=== PATIENT | male | born 1975 | race Caucasian/White ===

== ENCOUNTER 2018-03-19 04:35 | Emergency (ER) | payer MEDICARE, OTHER ==
[~2018-03-19] VITALS: Ht 177.8 cm; Wt 68.0 kg
[2018-03-19] VITALS (8 sets, daily range): BP systolic 110–132; BP diastolic 67–99
[2018-03-19 05:34] LABS: BASOPHILS % (AUTO) 1.4 % (0.0-2.0); EOSINOPHILS % (AUTO) 2.4 % (0.0-3.0); HEMOGLOBIN 15.2 G/DL (14.2-18.0); LYMPHOCYTES % (AUTO) 31.4 % (20.0-45.0); MEAN CORPUSCULAR VOLUME 87 FL (80-99); MONOCYTES % (AUTO) 12.8 % (1.0-10.0); PLATELET COUNT 251 K/UL (150-450); RED BLOOD COUNT 5.16 M/UL (4.70-6.10); RED CELL DISTRIBUTION WIDTH 11.7 % (11.6-14.8)
[2018-03-19 05:43] LABS: ANION GAP 13 mmol/L (5-15); BLOOD UREA NITROGEN 25 mg/dL (7-18); CARBON DIOXIDE 24 MMOL/L (21-32); CHLORIDE 105 MMOL/L (98-107); CREATININE 1.3 MG/DL (0.55-1.30); POTASSIUM 3.5 MMOL/L (3.5-5.1); SODIUM 142 MMOL/L (136-145)
[2018-03-19 05:47] LABS: ALANINE AMINOTRANSFERASE 140 U/L (12-78); ALBUMIN 4.2 G/DL (3.4-5.0); ALKALINE PHOSPHATASE 86 U/L (46-116); ASPARTATE AMINO TRANSFERASE 192 U/L (15-37); BILIRUBIN,TOTAL 0.7 MG/DL (0.2-1.0)
--- NOTE | 2018-03-19 06:20 | Emergency Room Report ---
History of Present Illness General Chief Complaint: Altered Level of Consciousness Source: EMS (Ciro Frazier MD) Present Illness HPI 34-year-old male presents ED for evaluation. Patient brought in by EMS stating that he was crawling on the sidewalk this morning. Patient appears confused, agitated. Patient denies drug use. Denies alcohol use. Denies chest pain or shortness of breath. Denies hearing voices. Denies any suicidal or homicidal ideation. No other aggravating relieving factors. Denies any other associated symptoms (Ciro Frazier MD) Allergies: Coded Allergies: UNABLE TO ASSESS (Unverified , 03/19/18) Patient History Past Medical History: none Past Surgical History: none Pertinent Family History: none Social History: Reports: drug use; Denies: smoking, alcohol use Immunizations: UTD Reviewed Nursing Documentation: PMH: Agreed; PSxH: Agreed (Ciro Frazier MD) Review of Systems All Other Systems: negative except mentioned in HPI (Ciro Frazier MD) Physical Exam Vital Signs Date Time Temp Pulse Resp B/P (MAP) Pulse Ox O2 Delivery O2 Flow Rate FiO2 03/19/18 04:32 98.0 112 18 116/78 98 Room Air 98.1 Sp02 EP Interpretation: reviewed, normal General Appearance: no apparent distress, alert, GCS 15, non-toxic, other - agitated Head: normocephalic Eyes: bilateral eye normal inspection, bilateral eye PERRL ENT: normal ENT inspection Neck: normal inspection Respiratory: chest non-tender, lungs clear, normal breath sounds, speaking full sentences Cardiovascular #1: tachycardia Gastrointestinal: normal inspection Rectal: deferred Genitourinary: no CVA tenderness Musculoskeletal: normal inspection Neurologic: other - agitated Psychiatric: anxious, other - agitated Skin: normal inspection Lymphatic: normal inspection (Ciro Frazier MD) Medical Decision Making Diagnostic Impression: Primary Impression: Substance abuse Additional Impressions: Methamphetamine abuse Altered level of consciousness Head injury, acute Qualified Codes: S09.90XA - Unspecified injury of head, initial encounter ER Course Hospital Course 34-year-old M presents to ED with altered mental status. agitated Differential diagnoses include: Psychosis, EtOH, drug abuse Clinical course patient placed on stretcher. On color television console monitor. After initial history and physical ordered labs, IV fluids, EKG Labs reviewed-electrolytes okay, no leukocytosis, hemoglobin/hematocrit stable, tox panel + for multilple substances EKG - sinus tachycardia no acute ischemic changes interpreted by me patient given IV hydration. Tachycardia resolving. Patient allowed to rest. On color television console monitor with stable vitals. Patient is now awake alert oriented x3, ambulating i. I feel this is a highly complex case requiring extensive working including EKG/Rhythm strip, Xray/CT/US, Blood/urine lab work, repeat exams while in ED, and administration of strong opiates/narcotics for pain control, admission to hospital or close patient follow up. Diagnosis - substance abuse Stable and discharged to home. Followup with PMD. Return to ED if symptoms recur or worsen Labs Test 03/19/18 05:25 White Blood Count 7.0 K/UL (4.8-10.8) Red Blood Count 5.16 M/UL (4.70-6.10) Hemoglobin 15.2 G/DL (14.2-18.0) Hematocrit 45.0 % (42.0-52.0) Mean Corpuscular Volume 87 FL (80-99) Mean Corpuscular Hemoglobin 29.5 PG (27.0-31.0) Mean Corpuscular Hemoglobin Concent 33.9 G/DL (32.0-36.0) Red Cell Distribution Width 11.7 % (11.6-14.8) Platelet Count 251 K/UL (150-450) Mean Platelet Volume 8.3 FL (6.5-10.1) Neutrophils (%) (Auto) 52.0 % (45.0-75.0) Lymphocytes (%) (Auto) 31.4 % (20.0-45.0) Monocytes (%) (Auto) 12.8 % (1.0-10.0) Eosinophils (%) (Auto) 2.4 % (0.0-3.0) Basophils (%) (Auto) 1.4 % (0.0-2.0) Sodium Level 142 MMOL/L (136-145) Potassium Level 3.5 MMOL/L (3.5-5.1) Chloride Level 105 MMOL/L (98-107) Carbon Dioxide Level 24 MMOL/L (21-32) Anion Gap 13 mmol/L (5-15) Blood Urea Nitrogen 25 mg/dL (7-18) Creatinine 1.3 MG/DL (0.55-1.30) Estimat Glomerular Filtration Rate > 60 mL/min (>60) Glucose Level 84 MG/DL (74-106) Calcium Level 9.0 MG/DL (8.5-10.1) Total Bilirubin 0.7 MG/DL (0.2-1.0) Aspartate Amino Transf (AST/SGOT) 192 U/L (15-37) Alanine Aminotransferase (ALT/SGPT) 140 U/L (12-78) Alkaline Phosphatase 86 U/L (46-116) Total Protein 8.2 G/DL (6.4-8.2) Albumin 4.2 G/DL (3.4-5.0) Globulin 4.0 g/dL Albumin/Globulin Ratio 1.0 (1.0-2.7) Salicylates Level 1.7 ug/mL (2.8-20) Urine Opiates Screen Negative (NEGATIVE) Acetaminophen Level < 2 MCG/ML (10-30) Urine Barbiturates Screen Negative (NEGATIVE) Phencyclidine (PCP) Screen Negative (NEGATIVE) Urine Amphetamines Screen Positive (NEGATIVE) Urine Benzodiazepines Screen Positive (NEGATIVE) Urine Cocaine Screen Negative (NEGATIVE) Urine Marijuana (THC) Screen Negative (NEGATIVE) Serum Alcohol < 3 mg/dL (Ciro Frazier MD) ER Course received signout from Dr Vargas 34-year-old male, altered mental status, polysubstance abuse, during the day he was rapidly talking, no actual SI or HI, still intoxicated, now he has been sleeping for the last 2 hours. Patient is still pending. Severity these results for final discharge (Richelle Kincaid M.D.) ER Course Patient was signed out to me. He was awaiting clinical sobriety before discharge and reassessment. He was in bed and crawled out and fell to the floor. Hitting his head. He sustained an abrasion and bleeding to the right forehead. We'll sedate him further with Haldol and get CT scans head. (ALEX MCALLISTER M.D.) EKG Diagnostic Results Rate: tachycardiac Rhythm: NSR ST Segments: no acute changes ASA given to the pt in ED: No (Ciro Frazier MD) Rhythm Strip Diag. Results EP Interpretation: yes Rhythm: NSR, no PVC's, no ectopy (Ciro Frazier MD) CT/MRI/US Diagnostic Results CT/MRI/US Diagnostic Results : Imaging Test Ordered: CT head Impression negative per radiologist (ALEX MCALLISTER M.D.) Last Vital Signs Date Time Temp Pulse Resp B/P (MAP) Pulse Ox O2 Delivery O2 Flow Rate FiO2 03/19/18 05:54 97 19 120/84 98 Room Air 03/19/18 04:32 98.0 98.1 Status: improved (Ciro Frazier MD) Status: improved (ALEX MCALLISTER M.D.) Disposition: HOME, SELF-CARE Condition: Stable Referrals: NON PHYSICIAN (PCP) Ciro Frazier MD Mar 19, 2018 06:20 Richelle Kincaid M.D. Mar 19, 2018 21:07 ALEX MCALLISTER M.D. Mar 19, 2018 23:03
--- NOTE | 2018-03-19 15:20 | Diagnostic Imaging Report ---
Indication: Altered mental status, altered level of consciousness Technique: Continuous helical CT scanning of the head was performed without intravenous contrast material. Axial and coronal 5 mm sections were generated. Radiation dose was minimized using automated exposure control Dose: Total Dose Length Product - DLP 1428.[address] Dose Index - CTDIvol(s) 70.38 mGy. Comparison: none Findings: The ventricular system is normal in size and configuration. There is no shift of midline structures. No abnormal extra-axial fluid collections are noted. There is no evidence of intracerebral bleeding. No other abnormal high or low density areas are noted within the brain. Impression: Normal CT scan of the head without contrast material. The CT scanner at [facility] is accredited by the [employer] and the scans are performed using protocols designed to limit radiation exposure to as low as reasonably achievable to attain images of sufficient resolution adequate for diagnostic evaluation.
[2018-03-19] MEDS ORDERED: Haloperidol 5mg/ml Inj IM ONE (23:00)
[2018-03-19] MEDS ORDERED: DiphenhydrAMINE 50mg/ml Inj IVP ONE (23:30)
[2018-03-20 00:15] VITALS: BP 134/78
[2018-03-20 02:56] VITALS: BP 140/82
[2018-03-20 04:28] VITALS: BP 113/69
[2018-03-20 06:44] VITALS: BP 108/62
[2018-03-20 06:49] VITALS: BP 108/62
--- NOTE | 2018-03-20 14:38 | Diagnostic Imaging Report ---
Indications: Head trauma, pain, fell and hit head on sidewalk Technique: Spiral acquisitions obtained through the brain. Angled axial and coronal 5 x 5 mm slices were reconstructed. Total dose length product 1435 mGycm. CTDI vol(s) 7 mGy. Dose reduction achieved using automated exposure control Comparison: None. Findings: There is mild image degradation due to motion artifact. There is supraorbital scalp soft tissue swelling. There is no calvarial fracture. No acute intracranial hemorrhage or edema. No mass effect or midline shift. Normal dai-white differentiation. Normal-sized ventricles and extra-axial CSF spaces. Impression: Limited due to motion artifact No evidence of supraorbital scalp soft tissue injury No gross intracranial bleed or mass effect. This agrees with the preliminary interpretation provided overnight by [facility] service. The CT scanner at [facility] is accredited by the [employer] and the scans are performed using protocols designed to limit radiation exposure to as low as reasonably achievable to attain images of sufficient resolution adequate for diagnostic evaluation.
== END 2018-03-20 06:49 | disposition home or self-care (01) ==
LOC: EDBD 04:35 → EMR 04:49
DX: F15.10 Other stimulant abuse, uncomplicated (principal); R41.82 Altered mental status, unspecified; S09.90XA Unspecified injury of head, initial encounter; W19.XXXA Unspecified fall, initial encounter; Y92.480 Sidewalk as the place of occurrence of the external cause; R00.0 Tachycardia, unspecified
CPT/HCPCS: 36415; 70450; 80053; 80307; 82962; 85025; 96360; 96361; 96374; 96375; 99284; G0480; J1200; J1630; 80329

== ENCOUNTER 2018-03-20 13:25 | Emergency (ER) | payer MEDICARE, OTHER ==
[~2018-03-20] VITALS: Ht 165.1 cm; Wt 65.8 kg
[2018-03-20 13:29] VITALS: BP 114/78
[2018-03-20] MEDS ORDERED: LORazepam 1mg tab ORAL ONE (14:00)
--- NOTE | 2018-03-20 15:36 | Emergency Room Report ---
History of Present Illness General Chief Complaint: Behavioral Complaint Source: Patient, EMS (Dale Cruz DO) Present Illness HPI Patient was recently disposition from the hospital upon initial arrival the patient was sleeping for the first several hours upon awaking the patient is asking for food Patient also complained that he had some mild diarrhea and requesting Pepto- Bismol Denies any chest pain or shortness of breath denies any back or flank pain Does not appear to have any other medical complaints Patient reports something sweet to eat and drink (Dale Cruz DO) Allergies: Coded Allergies: No Known Allergies (Unverified , 03/20/18) UNABLE TO ASSESS (Unverified , 03/19/18) Patient History Past Medical History: see triage record Pertinent Family History: none Reviewed Nursing Documentation: PMH: Agreed; PSxH: Agreed (Dale Cruz DO) Review of Systems All Other Systems: negative except mentioned in HPI (Dale Cruz DO) Physical Exam Vital Signs Date Time Temp Pulse Resp B/P (MAP) Pulse Ox O2 Delivery O2 Flow Rate FiO2 03/20/18 13:22 98.2 92 18 114/78 100 Room Air 98.2 Sp02 EP Interpretation: reviewed, normal General Appearance: no apparent distress Head: normocephalic, atraumatic Eyes: bilateral eye PERRL, bilateral eye EOMI ENT: normal pharynx Respiratory: chest non-tender, lungs clear Cardiovascular #1: regular rate, rhythm Gastrointestinal: non tender, soft, no mass Musculoskeletal: normal inspection Neurologic: alert, oriented x3, responsive Skin: normal color, no rash Lymphatic: no adenopathy (Dale Cruz DO) Medical Decision Making Diagnostic Impression: Primary Impression: Methamphetamine abuse ER Course Patient has recent blood work in the system Patient has been drug positive in the past and admits to doing methamphetamine At this time social workers contacted She reports the patient does not meet any criteria for further intervention Patient is allowed to rest and pending further disposition Please note that throughout the stay patient is calm appropriate There are no complaints of suicidal or homicidal thoughts (Dale Cruz DO) ER Course This patient was signed out to me. He was seen here last night and discharge this morning. He came back in complaining of depression and wanted a place to stay. He slept through the day without any issue. Patient slept for several hours and now awake and said he wants to leave. No suicidal thought homicidal thought. No criteria for 5150. This patient is a chronic risk of self injury due to poor impulse control, limited coping skills, and judgment intermittently impaired by intoxication. I believe that the available clinical evidence to suggest that these characteristics derived primarily from personality disorder and are likely very stable over time. Hospitalization would likely attenuate risk of self-harm only during assisted period, without lasting risk reduction. Serious self-harm , while possible, would likely be inadvertent, and because of impulsivity, and foreseeable. For these reasons, I do not believe hospitalization would provide meaningful reduction in risk of self-harm. (ALEX MCALLISTER M.D.) Last Vital Signs Date Time Temp Pulse Resp B/P (MAP) Pulse Ox O2 Delivery O2 Flow Rate FiO2 03/20/18 13:29 92 18 114/78 100 Room Air 03/20/18 13:22 98.2 98.2 Status: improved (Dale Cruz DO) Status: improved (ALEX MCALLISTER M.D.) Disposition: HOME, SELF-CARE Condition: Stable Referrals: NOT CHOSEN IPA/,REFERRING (PCP) Patient Instructions: Self-Destructive Behavior Additional Instructions: Follow-up with your doctor in 7 days. Stop using drugs. Go to rehabilitation. Return if worse. Dale Cruz DO Mar 20, 2018 15:36 ALEX MCALLISTER M.D. Mar 20, 2018 21:27
[2018-03-20 22:21] VITALS: BP 114/78
== END 2018-03-20 21:15 | disposition left against medical advice (07) ==
LOC: EDBD 13:25 → EMR 13:54
DX: F91.9 Conduct disorder, unspecified (principal); F15.10 Other stimulant abuse, uncomplicated
CPT/HCPCS: 99284